=== PATIENT | male | born 1950 | race Caucasian/White ===

== ENCOUNTER → 2020-01-17 06:38 | Outpatient (CLI) | payer MEDICARE, SELFPAY ==
--- NOTE | 2020-01-17 | CA_ITS ---
APPROVED REPORT Exam: Pharmacologic Technologist: Mae Ruiz Ht: 5 ft 6 in Wt: 155 lbs BSA: 1.79 m2 HR: 63 bpm BP: 135/81 mmHg Indications: Abnormal EKG, CAD Medical History Medications: Amlodipine,,,,, Omeprazole,,,,, Levothyroxine,,,,, Aspirin,,,,, Gabapentin,,,,, Vitamin D3,,,,, Atorvastatin,,,,, TAMSULOSIN,,,,, Prednisone,,,,, Celecoxib,,,,, DiPHENHYDRAMINE,,,,, Multivitamin,,,,, Stress Test Details Test: LEXISCAN HR Resting HR: 66 bpm Max Heart Rate (APMHR): 152 bpm Max HR Achieved: 97 bpm Target HR (85% APMHR): 129 bpm % of APMHR: 63 Recovery HR: 68 bpm BP Resting BP: 135.0/81.0 mmHg Max BP: 145.0/68.0 mmHg Recovery BP: 137.0/68.0 mmHg ECG Clinical Exercise duration: 04:03 min Highest Stage Achieved: Stress ECG Conclusion Resting ECG: Normal sinus rhythm, first degree AV block Symptoms: Shortness of air, nausea, malaise, lightheaded. Aminophylline 100 mg slow IV given, symptoms better. No chest pain. Arrhythmias/Ectopy: None ST-T Changes: [address] depression in lead III only. Test Summary REST . . . . . . . Resting REST 03:12 . . 66 . 135/ 81 . . Stage 1 . . . . . . . Myoview Injected Stage 1 01:00 . . 85 . . . . Stage 2 01:00 . . 94 . 141/ 76 . . Stage 3 01:00 . . 92 . 141/ 75 . . Stage 4 01:00 . . 89 . 145/ 68 . . Stage 4 01:03 . . 88 . 145/ 68 . Stop exercise at 04:03 RECOVERY 01:00 . . 85 . . . . RECOVERY 02:00 . . 84 . 132/ 68 . . RECOVERY 03:00 . . 82 . 132/ 68 . . RECOVERY 04:00 . . 75 . 132/ 68 . . RECOVERY 05:00 . . 74 . 132/ 68 . . RECOVERY 06:00 . . 69 . 130/ 69 . . RECOVERY 06:27 . . 70 . 137/ 68 . . Electronically signed by : Pablo Woodward, 01/18/2020 09:16:03
--- NOTE | 2020-01-17 06:49 | NM_ITS ---
APPROVED REPORT Exam: Nuclear Stress Test Indication: ABN EKG, HTN, HYPERLIPIDEMIA, FM HX. Patient Location: Outpatient Stress Tech: Mae Ruiz [place] Tech:Katina Ramon, ARRT, RT (R)(N) Ht: 5 ft 6 in Wt: 155 lbs HR: 63 bpm BP: 135/81 mmHg BSA: 1.79 m2 BMI: 25.0 History: ABN EKG, HTN, HYPERLIPIDEMIA, FM HX. Procedure: Patient received a 0.4 mg of intravenous Lexiscan, resting heart rate 63 bpm, resting blood pressure 135/81 mmHg, with Lexiscan maximum heart rate achived was 93 bpm which is Less than 85 % of the maximum predicted heart rate and blood pressure was 141/76 mmHg. With Lexiscan, patient denied any complaint of chest pain. Electrocardiogram Resting electrocardiogram showed sinus rhythm, with Lexiscan there is less than 1.[address] segment depression noted from the baseline EKG. The EKG portion of the Lexiscan Myoview is nondiagnostic. Cardiac Stress and Resting SPECT Images: Cardiac Stress and Resting SPECT images were obtained using technetium 99m Myoview 30.5 mCi stress and 10.51 mCi at rest. Gated SPECT with analysis of segmental wall motion and calculation of the ejection fraction also done. Cardiac stress and resting SPECT images show uniform myocardial activity without segmental perfusion abnormality, computer derived ejection fraction is over 65% with no regional wall motion abnormality, right ventricle is normal size and contractility. Conclusion: 1. The EKG portion of the Lexiscan Myoview is nondiagnostic. 2. No scintigraphic evidence of reversible ischemia seen, computer derived ejection fraction is over 65% with no regional wall motion abnormality, right ventricle is normal size and contractility. 3. Normal Lexiscan Myoview study. Electronically signed by : Pablo Woodward, 01/18/2020 09:19:37
--- NOTE | 2020-01-17 06:49 | CA_ITS ---
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 [employer]: Carlie Zafar RDCS Ht: 5 ft 6 in Wt: 155lbs BSA: 1.79 BP: 142/80 mmHg Indications: ABN EKG,PRE-OP 2D Dimensions LVOT 1.90 cm (M/F) 1.5-2.5 M-Mode Dimensions RVDd 3.08 cm (0.9-2.6) LVDd 4.29 cm (3.5-5.7) LVDs 3.19 cm (3.5-5.7) IVSd 1.03 cm (0.6-1.1) PWd 0.76 cm (0.6-1.1) EF (Teich) 50.80% FS 25.60% EDV (Teich) 82.60 mL ESV (Teich) 40.60 mL LV Diastology E/A Ratio 1.09 Mitral Valve MV A Velocity 56.00 (40-130 cm/s) Left Ventricle Left atrium is normal size, left ventricle is normal size, left ventricle wall thickness is upper limit of the normal, there is preserved left ventricular systolic function, visually estimated ejection fraction 55% with no regional wall motion abnormality. Diastolic parameters are within normal range. Right Ventricle Right atrium is normal size, right ventricle is mildly enlarged with normal contractility. Aortic Valve Aortic valve is minimally thickened and fibrosed, there is no aortic stenosis or aortic insufficiency. Mitral Valve Mitral valve is grossly normal, there is mild mitral regurgitation. Tricuspid Valve Tricuspid valve is grossly normal, there is mild tricuspid regurgitation, tricuspid regurgitation jet velocity is inadequate for calculation of the right ventricular systolic pressure. Pulmonic Valve Pulmonic valve is poorly visualized. Great Vessels Aortic root is normal size. Pericardium No significant pericardial effusion noted. Conclusion 1. Normal left ventricular size, preserved left ventricular systolic function, visually estimated ejection fraction 55% with no regional wall motion abnormality, diastolic parameters are within normal range. 2. Mildly enlarged right ventricle with normal contractility. 3. Mild mitral and tricuspid regurgitation. 4. No significant pericardial effusion noted. Electronically signed by : Pablo Woodward, 01/18/2020 09:50:18
--- NOTE | 2020-01-17 08:11 | HMH.ITSHM ---
Current Home Medications as stated by this patient Talha [employer] or claim representative. []TAMSULOSIN PREDNISONE PILOCARPINE OMEPRAZOLE MULTIVITAMIN LEVOTHYROXINE GABAPENTIN DIPHENHYDRAMINE VITAMIN D3 ATORVASTATIN ASA AMLODIPINE
== END ==
PROVIDERS: PCP Family Medicine; Visit Provider Internal Medicine
DX: I27.20 Pulmonary hypertension, unspecified (principal); R94.31 Abnormal electrocardiogram [ECG] [EKG]; Z01.810 Encounter for preprocedural cardiovascular examination; Z79.899 Other long term (current) drug therapy
CPT/HCPCS: 36415; 78452; 80048; 80061; 80076; 84439; 84443; 85025; 93017; 93306; A9502; J2785

== ENCOUNTER → 2020-01-17 10:17 | Outpatient (CLI) | payer MEDICARE, SELFPAY ==
[2020-01-17 10:55] LABS: Basophils % 0.8 % (0.1-2.0); Eosinophils # 0.2 K/mm3 (0.0-0.4); Eosinophils % 5.1 % (0.1-12.0); Hematocrit 46.5 % (42.0-52.0); Lymphocytes # 1.2 K/mm3 (0.7-4.5); Lymphocytes % 30.9 % (10-50); Mean Corpuscular HGB Conc 34.4 g/dL (31.8-35.4); Mean Corpuscular Hemoglobin 35.7 pg (27.0-31.2); Mean Corpuscular Volume 103.8 fl (80-94); Mean Platelet Volume 7.3 fl (7.4-10.4); Monocytes # 0.2 K/mm3 (0.1-1.0); Monocytes % 5.9 % (1.7-9.3); Neutrophils # 2.3 K/mm3 (1.8-7.8); Neutrophils % 57.3 % (37.0-80.0); Platelet Count 192 K/mm3 (142-424); Red Blood Count 4.48 M/mm3 (4.60-6.20); Red Cell Distribution Width 13.5 % (11.5-17.5)
[2020-01-17 11:19] LABS: Chloride 103 mmol/L (98-107); Sodium 142 mmol/L (136-145)
[2020-01-17 11:20] LABS: Potassium 4.3 mmoL/L (3.5-5.1)
[2020-01-17 11:21] LABS: Bilirubin,Unconjugated 0.6 mg/dL (0.0-1.1)
[2020-01-17 11:22] LABS: Blood Urea Nitrogen 17 mg/dl (9-20); Estimated Glomerular Filt Rate 96 ml/min (>60); GFR (African American) 116 ML/MIN (>60)
[2020-01-17 11:22] LABS: Alanine Aminotransferase 34 U/L (12-78); Albumin Level 4.4 g/dl (3.5-5.0); Alkaline Phosphatase 77 U/L (38-126); Aspartate Amino Transferase 33 U/L (17-59); Bilirubin,Direct 0.2 mg/dl (0.0-0.4); Bilirubin,Indirect 0.7 mg/dL (0.0-0.9); Bilirubin,Total 0.9 mg/dl (0.2-1.3); Chol/HDL Ratio 3.6 (1-3.5); Cholesterol 192 mg/dl (140-200); HDL Cholesterol 54 mg/dl (40-60); Total Protein,Serum 7.6 g/dl (6.3-8.2); Triglycerides 66 mg/dl (30-150); VLDL Cholesterol 13 mg/dL (0-40)
[2020-01-17 11:23] LABS: Anion Gap 13.3 mEq/L (5-15); Calcium 9.7 mg/dl (8.4-10.2); Carbon Dioxide 30 mmol/L (22.0-30.0); Glucose 105 mg/dl (74-100)
[2020-01-17 11:33] LABS: Direct LDL Cholesterol 122.97 mg/dL (100-129)
[2020-01-17 11:39] LABS: Free T4 (Free Thyroxine) 1.15 ng/dl (0.78-2.19)
[2020-01-17 11:53] LABS: Thyroid Stimulating Hormone 0.84 uIU/mL (0.465-4.68)
== END ==
PROVIDERS: Nurse Practitioner Family; PCP Family Medicine; Visit Provider Internal Medicine
DX: I10 Essential (primary) hypertension (principal); E78.5 Hyperlipidemia, unspecified; I65.23 Occlusion and stenosis of bilateral carotid arteries
CPT/HCPCS: 36415; 80048; 80061; 80076; 84439; 84443; 85025

== ENCOUNTER → 2020-01-19 07:01 | Outpatient (CLI) | payer MEDICARE, SELFPAY ==
--- NOTE | 2020-01-19 07:03 | CT_ITS ---
Procedure: CT ANGIO NECK CLINICAL HISTORY: shamar Carotid artery disease. Previous history of throat cancer with radiation COMPARISON: No exams were available for comparison TECHNIQUE: IV Contrast: 100ml Optiray 350 Axial images obtained with sagittal and coronal reformats. All CT scans at the facility use one or more dose reduction, viz: automated exposure control, ma/kV adjustment per patient size (including targeted exams where dose is matched to indication, i.e. head), or iterative reconstruction technique. FINDINGS: The aortic arch has an unremarkable appearance. There is mild stenosis at the ostium of both vertebral arteries of approximately 30 percent. The right common carotid is unremarkable. There is mild dilatation of the carotid bulb on the right. No significant stenotic lesions are evident of the right internal carotid. The left common carotid has an unremarkable appearance. There is some calcific plaque involving the proximal aspect of the left carotid bulb. There is a severe slightly irregular stenosis involving the proximal left ICA. This stenosis is approximately 80 percent and spans a length of 4 mm. Calcific and soft plaque is present in the carotid bulb with ulceration just proximal to the area of stenosis. The ulcer is at least 2 mm deep. Atheromatous calcific plaque involves the cavernous portion of the ICAs on both sides. There are degenerative changes in the cervical spine with degenerative disc disease at C5-C6 and C6-C7. IMPRESSION: 1. 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 There is approximately 80 percent diameter stenosis at this area. The length of the stenosis is approximately 4 mm with some irregularity of the lumen. 2. No evidence stenotic lesion of the right carotid 3. Mild stenosis of the ostium of both vertebral arteries of approximately 30 percent Dictated by: Jin Baig MD 01/20/2020 07:31 Electronically signed by Jin Baig MD in [facility] 01/20/2020 07:31
--- NOTE | 2020-01-19 08:56 | US_ITS ---
PROCEDURE: US AORTA CLINICAL INDICATION: fam hx of aortic aneurysm COMPARISON: No exams were available for comparison FINDINGS: No evidence of abdominal aortic aneurysm. There is minimal arteriosclerotic plaque lower abdominal aorta just above the bifurcation. Proximal common iliacs have an unremarkable appearance. IMPRESSION: Negative for abdominal aortic aneurysm Dictated by: Dr. Hank Trevino MD 01/19/2020 09:[address] Hank Trevino MD in [facility] 01/19/2020 09:42
== END ==
PROVIDERS: PCP Family Medicine; Visit Provider Nurse Practitioner Family
DX: I65.23 Occlusion and stenosis of bilateral carotid arteries (principal); R09.89 Other specified symptoms and signs involving the circulatory and respiratory systems; Z82.49 Family history of ischemic heart disease and other diseases of the circulatory system
CPT/HCPCS: 70498; 76770